=== PATIENT | male | born 1940 | race Caucasian/White ===

== ENCOUNTER 2017-06-19 06:07 | Day surgery (SDC) | payer MEDICARE, OTHER ==
[~2017-06-19] VITALS: Wt 99.8 kg
[~2017-06-19 06:07] MED LIST: ASPI325EC PO; ASPI81CH PO; ATEN25 PO; Clindamycin HC150 MG PO; Flecainide Acet50 MG PO; METO25 PO; METO25ER PO; METO50 PO; METO50ER PO; OXYACE5T PO; ROSU10TA PO; ROSU5; Tambocor100 MG; Tambocor100 MG PO
[2017-06-20 05:40] LABS: BASOPHILS ABSOLUTE AUTO 0.03 K/mm3 (0.00-0.23); BASOPHILS PERCENT AUTO 0 % (0-2); EOSINOPHILS ABSOLUTE AUTO 0.12 K/mm3 (0.00-0.68); EOSINOPHILS PERCENT AUTO 2 % (0-6); Hematocrit 34.1 % (37.0-53.0); Hemoglobin 11.5 g/dL (13.5-17.5); IMMATURE GRAN ABSOLUTE AUTO 0.02 K/mm3 (0.00-0.10); IMMATURE GRAN PERCENT AUTO 0 % (0-1); LYMPHOCYTES PERCENT AUTO 10 % (21-46); MONOCYTES PERCENT AUTO 10 % (4-13); Mean Corpuscular HGB Conc 33.7 g/dL (31.5-36.5); Mean Corpuscular Volume 95 fL (80-100); Mean Platelet Volume 9.4 fL (9.1-12.4); NEUTROPHILS ABSOLUTE AUTO 5.35 K/mm3 (1.96-9.15); NEUTROPHILS PERCENT AUTO 77 % (41-73); Platelet Count 149 K/mm3 (150-400); RDW Coefficient Variation 11.8 % (11.7-14.2); Red Blood Cell Count 3.59 M/mm3 (4.30-5.90); White Blood Cell Count 6.92 K/mm3 (4.00-11.30)
[2017-06-20 05:56] LABS: Anion Gap 6 mmol/L (6-16); Blood Urea Nitrogen 25 mg/dL (8-24); Bun/Creatinine Ratio 24.3 (12.0-20.0); CO2, Blood 26 mmol/L (21-32); Calcium, Blood 7.9 mg/dL (8.5-10.1); Chloride, Blood 108 mmol/L (98-108); Creatinine, Blood 1.03 mg/dL (0.60-1.20); Glomerular Filtration Rate >60 (60-); Glucose, Blood 143 mg/dL (70-99); Sodium, Blood 140 mmol/L (136-145)
[2017-06-20] MEDS ORDERED: HYDR1TAB94 PO (11:02)
== END 2017-06-20 14:14 | disposition home or self-care (01) ==
LOC: ORSCMMR 06:07 → SURS 06:09 → ORSCMMR 06:09 → ORD 07:30 → ORSCMMR 07:30 → SURS 11:15 → ORSCMMR 06-20 14:14
PROVIDERS: Orthopaedic Surgery
PROC: 0SRD0JA Replacement of Left Knee Joint with Synthetic Substitute, Uncemented, Open Approach (ICD-10-PCS; principal; 2017-06-19 07:30)
DX: M17.12 Unilateral primary osteoarthritis, left knee (principal); I10 Essential (primary) hypertension; Z79.899 Other long term (current) drug therapy; I48.0 Paroxysmal atrial fibrillation; Z79.82 Long term (current) use of aspirin
CPT/HCPCS: 36415; 73560-LT; 80048; 82947; 85025; 86850; 86900; 86901; 88300; 97110; 97116; 97161; 97530; C1776; G8978; G8979; J0171; J0690; J0735; J1885; J2250; J2795; J3010; J7120

== ENCOUNTER 2017-10-09 10:44 | Day surgery (SDC) | payer MEDICARE, OTHER ==
[~2017-10-09] VITALS: Ht 177.8 cm; Wt 99.3 kg
[~2017-10-09 10:44] MED LIST changes: +HYDR1TAB94 PO
== END 2017-10-09 11:55 | disposition home or self-care (01) ==
LOC: ORSCSDS 10:44
PROVIDERS: Anesthesiology
PROC: 3E0R33Z Introduction of Anti-inflammatory into Spinal Canal, Percutaneous Approach (ICD-10-PCS; principal; 2017-10-09 11:45)
DX: M51.16 Intervertebral disc disorders with radiculopathy, lumbar region (principal); I10 Essential (primary) hypertension; I48.0 Paroxysmal atrial fibrillation; E78.00 Pure hypercholesterolemia, unspecified; Z79.82 Long term (current) use of aspirin; Z79.899 Other long term (current) drug therapy
CPT/HCPCS: J1040

== ENCOUNTER 2017-11-16 09:24 | Day surgery (SDC) | payer MEDICARE, OTHER ==
[~2017-11-16] VITALS: Ht 177.8 cm; Wt 101.4 kg
== END 2017-11-16 10:26 | disposition home or self-care (01) ==
LOC: ORSCSDS 09:24
PROVIDERS: Anesthesiology
PROC: 3E0R33Z Introduction of Anti-inflammatory into Spinal Canal, Percutaneous Approach (ICD-10-PCS; principal; 2017-11-16 10:15)
DX: M51.16 Intervertebral disc disorders with radiculopathy, lumbar region (principal); I10 Essential (primary) hypertension; E11.9 Type 2 diabetes mellitus without complications; I48.0 Paroxysmal atrial fibrillation; E78.00 Pure hypercholesterolemia, unspecified; Z79.82 Long term (current) use of aspirin; Z79.899 Other long term (current) drug therapy
CPT/HCPCS: J1040

== ENCOUNTER 2018-11-20 09:23 | Day surgery (SDC) | payer MEDICARE, OTHER ==
[~2018-11-20] VITALS: Ht 177.8 cm; Wt 99.8 kg
[~2018-11-20 09:23] MED LIST changes: +Aspirin EC81 MG PO; +GABA600 PO; +METFORMIN HCL500 MG PO; +MULTI VITAMIN1 EACH PO; +ZOLP5 PO
[2018-11-20] MEDS ORDERED: Prilosec Otc20 MG PO (10:25)
== END 2018-11-20 11:50 | disposition home or self-care (01) ==
LOC: ORSCSDS 09:23
PROVIDERS: Internal Medicine Gastroenterology
PROC: 0DBH8ZX Excision of Cecum, Via Natural or Artificial Opening Endoscopic, Diagnostic (ICD-10-PCS; principal; 2018-11-20 11:00)
PROC: 0DBK8ZX Excision of Ascending Colon, Via Natural or Artificial Opening Endoscopic, Diagnostic (ICD-10-PCS; principal; 2018-11-20 11:00)
DX: R19.4 Change in bowel habit (principal); D12.0 Benign neoplasm of cecum; D12.2 Benign neoplasm of ascending colon; K57.30 Diverticulosis of large intestine without perforation or abscess without bleeding; Z80.0 Family history of malignant neoplasm of digestive organs; E66.9 Obesity, unspecified; E11.9 Type 2 diabetes mellitus without complications; I48.91 Unspecified atrial fibrillation; Z68.31 Body mass index [BMI] 31.0-31.9, adult; Z79.82 Long term (current) use of aspirin; Z79.899 Other long term (current) drug therapy
CPT/HCPCS: 82947; 88305; J2250; J2704

== ENCOUNTER 2019-02-13 12:53 | Day surgery (SDC) | payer MEDICARE, OTHER ==
[~2019-02-13] VITALS: Ht 177.8 cm; Wt 97.6 kg
[~2019-02-13 12:53] MED LIST changes: +Prilosec Otc20 MG PO
--- NOTE | 2019-02-13 13:30 | NUR ---
02/13/19 [id number] Neeru Gamboa CALL LIGHT WITHIN REACH
== END 2019-02-13 14:26 | disposition home or self-care (01) ==
LOC: ORSCSDS 12:53
PROVIDERS: Anesthesiology
PROC: 3E0R33Z Introduction of Anti-inflammatory into Spinal Canal, Percutaneous Approach (ICD-10-PCS; principal; 2019-02-13 14:00)
DX: M51.16 Intervertebral disc disorders with radiculopathy, lumbar region (principal); I10 Essential (primary) hypertension; E78.00 Pure hypercholesterolemia, unspecified; I48.0 Paroxysmal atrial fibrillation; E11.9 Type 2 diabetes mellitus without complications; E66.9 Obesity, unspecified; Z68.31 Body mass index [BMI] 31.0-31.9, adult; Z79.82 Long term (current) use of aspirin; Z79.84 Long term (current) use of oral hypoglycemic drugs; Z79.899 Other long term (current) drug therapy
CPT/HCPCS: J1040

== ENCOUNTER 2022-05-21 01:02 | Inpatient (IN) | payer MEDICARE, OTHER ==
[~2022-05-21] VITALS: Ht 177.8 cm; Wt 99.1 kg
[2022-05-21 01:39] LABS: BASOPHILS ABSOLUTE AUTO 0.06 K/mm3 (0.00-0.23); BASOPHILS PERCENT AUTO 1 % (0-2); EOSINOPHILS ABSOLUTE AUTO 0.37 K/mm3 (0.00-0.68); EOSINOPHILS PERCENT AUTO 7 % (0-6); Hematocrit 38.4 % (37.0-53.0); Hemoglobin 12.3 g/dL (13.5-17.5); IMMATURE GRAN ABSOLUTE AUTO 0.04 K/mm3 (0.00-0.10); IMMATURE GRAN PERCENT AUTO 1 % (0-1); LYMPHOCYTES ABSOLUTE AUTO 0.99 K/mm3 (0.84-5.20); LYMPHOCYTES PERCENT AUTO 18 % (21-46); MONOCYTES ABSOLUTE AUTO 0.45 K/mm3 (0.16-1.47); MONOCYTES PERCENT AUTO 8 % (4-13); Mean Corpuscular Volume 94 fL (80-100); Mean Platelet Volume 9.6 fL (9.1-12.4); NEUTROPHILS ABSOLUTE AUTO 3.69 K/mm3 (1.96-9.15); NEUTROPHILS PERCENT AUTO 66 % (41-73); Platelet Count 188 K/mm3 (150-400); RDW Coefficient Variation 12.7 % (11.7-14.2); RDW Standard Deviation 43.5 fL (35.1-46.3)
[2022-05-21 02:46] LABS: Albumin, Blood 3.6 g/dL (3.4-5.0); Albumin/Globulin Ratio 1.1 (0.8-1.8); Bilirubin, Total 0.3 mg/dL (0.1-1.0); Bun/Creatinine Ratio 24.3 (12.0-20.0); Calcium, Blood 8.4 mg/dL (8.5-10.1); Creatinine, Blood 1.15 mg/dL (0.60-1.20); Globulin, Blood 3.3 g/dL (2.2-4.0); Potassium, Blood 4.4 mmol/L (3.5-5.5); Total Protein, Blood 6.9 g/dL (6.4-8.2)
[2022-05-21 03:32] LABS: International Normalized Ratio 1.16; Prothrombin Time Results 12.1 Sec (9.7-11.5)
[2022-05-21 03:51] LABS: Anti-Xa UFH, PHA Monitoring 1.02 IU/mL
[2022-05-21] MEDS ORDERED: ELIQUIS5 M3 PO (04:30)
[2022-05-21 06:09] LABS: CHOL/HDL RATIO 2.9; Cholesterol 167 mg/dL (50-200); HDL Cholesterol 57 mg/dL (>39); LDL/HDL RATIO 1.4; Low Density Lipoprotein Chol 82 mg/dL (0-110); Triglycerides 140 mg/dL (30-160); Very Low Density Lipoprot Chol 28 mg/dL (6-32)
--- NOTE | 2022-05-21 06:45 | NUR ---
CALL TO PROVIDER DR LEIJA CALLED AND NOTIFIED OF TROPONIN LEVEL AT THIS TIME. NOTIFIED THAT CARDIOLOGY CONSULT HAS BEEN PLACED AND ANSWERING SERVICE NOTIFIED, PT IS CURRENLTY ON HEPARIN GTT. NOTIFIED OF PT CONTINUING TO DENY CP. PT IS NPO IN ANTICIPATION FOR POSSIBLE PROCEDURE FOLLOWING CARDIOLOGY CONSULT. NO FURTHER ORDERS AT THIS TIME.
--- NOTE | 2022-05-21 17:30 | NUR ---
ASSUMED CARE OF PT AT 0700 THIS AM. NO ACUTE EVENTS. ECHO COMPLETED AND CARDIOLOGY CONSULTED, PLAN FOR ANGIO IN AM. NPO AFTER MIDNIGHT. DR DAS NOTIFIED OF CRITICALLY HIGH TROPONIN TODAY. PT HAS DENIED CHEST PAIN OR PRESSURE ALL THROUGHOUT THE SHIFT. SEE DOCUMENTED VS. HEPARIN GTT CONTINUES TO INFUSE. PT IS ABLE TO USE CALL LIGHT FOR NEEDS, CALL LIGHT IN REACH AND FAMILY AT BEDSIDE AT THIS TIME. WILL CONTINUE TO MONITOR AND GIVE REPORT TO NOC SHIFT RN.
[2022-05-21] MEDS ORDERED: DONE5 PO (20:11)
[2022-05-22 03:49] LABS: BASOPHILS ABSOLUTE AUTO 0.04 K/mm3 (0.00-0.23); BASOPHILS PERCENT AUTO 1 % (0-2); EOSINOPHILS ABSOLUTE AUTO 0.32 K/mm3 (0.00-0.68); EOSINOPHILS PERCENT AUTO 6 % (0-6); Hematocrit 37.7 % (37.0-53.0); Hemoglobin 12.2 g/dL (13.5-17.5); IMMATURE GRAN ABSOLUTE AUTO 0.02 K/mm3 (0.00-0.10); IMMATURE GRAN PERCENT AUTO 0 % (0-1); LYMPHOCYTES ABSOLUTE AUTO 1.18 K/mm3 (0.84-5.20); LYMPHOCYTES PERCENT AUTO 22 % (21-46); MONOCYTES ABSOLUTE AUTO 0.45 K/mm3 (0.16-1.47); MONOCYTES PERCENT AUTO 8 % (4-13); Mean Corpuscular HGB 29.8 pg (26.0-34.0); Mean Corpuscular HGB Conc 32.4 g/dL (31.5-36.5); Mean Corpuscular Volume 92 fL (80-100); NEUTROPHILS ABSOLUTE AUTO 3.37 K/mm3 (1.96-9.15); NEUTROPHILS PERCENT AUTO 63 % (41-73); Platelet Count 172 K/mm3 (150-400); RDW Coefficient Variation 12.8 % (11.7-14.2); Red Blood Cell Count 4.09 M/mm3 (4.30-5.90); White Blood Cell Count 5.38 K/mm3 (4.00-11.30)
--- NOTE | 2022-05-22 04:20 | NUR ---
SHIFT SUMMARY AOX3-MILDLY FORGETFUL @BEGINNING OF SHIFT HOWEVER PLEASENT & COOPERATIVE. VSS. DENIES ANY CP, PRESSURE, N/V, DYSPNEA OR DIZZINESS. IND c AMBULATION, STEADY GAIT. HEP GTT RUNNING 15U/KG/HR. HAS BEEN NPO SINCE 2400 FOR PLAN TO GO TO [employer] DEVELOPMENT ENGINEER IN AM 1/16. REPORTED ANXIETY @[facility] & DR WIN ORDERED 0.25MG XANAX PO GAVE MED AROUND 2200. AROUND 2400 PTS MENTATION HAD CHANGED, HE WAS IRRITATED, AGITATED, REFUSING ALL CARE, VS, LABS. UNABLE TO ANSWER ORIENTATION QUESTIONS & FIRMLY ASKING STAFF TO LEAVE RM. CALLED DAUGHTER TO HELP REORIENT & REDIRECT, PT DIDNT BELIEVE DAUGHTER OVER THE PHONE. STARTED BECOMING MORE AGITATED & IRRITATED. WENT TO DISCUSS INCREASED CONFUSION c CHARGE N CRYSTAL D & WITHIN MIN PT HAD RIPPED IV TUBBING APART & WAS BLEEDING ALLOVER FLOOR & WAS UNSTEADY ON FEET. PLACED SOFT WRIST RESTRAINTS & 5MG IM ZYPREXA PER DR CHRISTOPHER ORDER. DAUGHTER MARGO INFORMED OF RESTRAINTS. PT HASNT SLEPT MORE THEN 40MIN T/O ENTIRE NIGHT. HAS BECOME ENCREASINGLY CONFUSED & AGITATED. THREATENED TO HIT STAFF MEMBERS INCLUDING NURSE. THINKS HE IS IN A "NURSING HOME, BASEMENT" TRYS TO GRAB, HIT, PINCH WHEN TRYING TO REASURE OR PERFORM CARE. PT BROKE OUT OF SOFT RESTRAINTS ROUGHLY 3-4x & WAS BECOMING COMBATIVE. MEDICATED c ANOTHER 5MG IM ZYPREXA & 1MG IV ATIVAN, MEDICATION DIDNT HELP c AGITATION. INFORMED DR TERRAZAS & HE ORDERED TUFF CUFFS TO BE PLACED ROUGHLY 0400, SECURITY IN RM TO ASSIST c PLACEMENT. WILL CALL DAUGHTER & UPDATE PER HER REQUEST. CALL LIGHT IN REACH, BED ALARM ON, THIS NURSE SITTING AT PTS RM DOOR.
[2022-05-22 06:30] LABS: Bun/Creatinine Ratio 20.4 (12.0-20.0); Calcium, Blood 8.8 mg/dL (8.5-10.1); Creatinine, Blood 1.13 mg/dL (0.60-1.20); Potassium, Blood 4.2 mmol/L (3.5-5.5)
--- NOTE | 2022-05-22 07:57 | NUR ---
Assumed care of patient at approx 0700, pt alert, oriented to self; know month/year/president; states he is going to a football game. Pt pulling at restraints and removing tele this am, reorinted pt several times, pt quickly forgets and calls out for help. Pt denies pain, chest pain/pressure, sob, nausea, diziness and numb/tingling. Tele sinus 60's bp stable. Spo2 >90% on ra, ls clear, resp rate 18-20. Abd soft nontender, with normoactive bt. Slight edema noted to bilateral ankles. Pulses strong. Other vss. No other acute changes noted. Will continue to monitor. Pt remains NPO for quality assurance qa lab analyst procedure.
--- NOTE | 2022-05-22 18:02 | NUR ---
Shift Summary Pt alert, oriented to self, family and month/year; unsure of where or event. Pt aggitated at times, pulling at restraints, attempting to get out of bed, throwing a blanket. Pt had tough cuffs on, removed this afternoon, pt remains in naseem vest. Tele sinus rhythm 50-60's, bp stable. Spo2 >90% on ra, breathing even and unlabored. Plans had been for angio during shift, however moved to tomorrow due to aggiation. Other vss. no other acute changes noted. Will continue to monitor.
--- NOTE | 2022-05-23 04:45 | NUR ---
SHIFT SUMMARY PT A&O TO SELF, FAMILY, AND PLACE. PT MAKES SOME CONFUSED STATEMENTS AND IS FORGETFUL AT TIMES, DAUGHTER REMAINED AT BEDSIDE THROUGHOUT SHIFT. ELIZABETH VEST WAS UNTIED AT 2225, BED ALARM ON, PT REMAINED APPROPRIATE AND COOPERATIVE WITH STAFF. VSS, BP STABLE, SB-SR 50-60's, DENIES CP/PRESSURE. SpO2> 92% RA, DENIES SOB. PT CONTINENT OF URINE AND BOWEL, SBA TO BATHROOM. HEPARIN gtt @ 15. PT NPO AT 0000. NO OTHER EVENTS, WILL REPORT TO ONCOMING RN.
[2022-05-23 05:36] LABS: Hematocrit 34.9 % (37.0-53.0); Hemoglobin 11.2 g/dL (13.5-17.5); Mean Corpuscular HGB 29.9 pg (26.0-34.0); Mean Corpuscular HGB Conc 32.1 g/dL (31.5-36.5); Mean Corpuscular Volume 93 fL (80-100); Mean Platelet Volume 9.5 fL (9.1-12.4); Platelet Count 152 K/mm3 (150-400); RDW Coefficient Variation 12.8 % (11.7-14.2); RDW Standard Deviation 43.8 fL (35.1-46.3); Red Blood Cell Count 3.74 M/mm3 (4.30-5.90); White Blood Cell Count 4.06 K/mm3 (4.00-11.30)
--- NOTE | 2022-05-23 05:43 | NUR ---
UPDATE NOTIFIED PHYSCIAN THAT PT CONVERTED TO AFIB, ORDERS GIVEN TO ADMINISTER 0900 DOSE OF METOPROLOL NOW.
[2022-05-23 05:54] LABS: Albumin, Blood 3.1 g/dL (3.4-5.0); Anion Gap 4 mmol/L (6-16); Blood Urea Nitrogen 20 mg/dL (8-24); CO2, Blood 24 mmol/L (21-32); Calcium, Blood 8.1 mg/dL (8.5-10.1); Chloride, Blood 114 mmol/L (98-108); Creatinine, Blood 1.11 mg/dL (0.60-1.20); Glomerular Filtration Rate 68 (60-); Glucose, Blood 125 mg/dL (70-99); Phosphorus, Blood 3.2 mg/dL (2.5-4.9); Sodium, Blood 142 mmol/L (136-145)
--- NOTE | 2022-05-23 15:37 | NUR ---
Pt. is awake in bed and welcomes my visit. Spouse and daughter are present. Pt. has just returned form surgery, but is pleasant, clear minded and displays a sense of humor. Faciltate a life review and prayed for Pt. Pt. and spouse verbalized gratitude fo rthe spiritual care visit, and welcomed my return.
--- NOTE | 2022-05-23 16:55 | NUR ---
PHYSICIAN COMMUNICATION NOTIFIED DR DAS THAT THE PATIENT STARTED FEELING SHORT OF BREATH AFTER EATING A SANDWICH AND THAT THERE WAS SOME FAINT FINE CRACKLES NOTED IN PATIENT R LOWER LUNG. ALSO RELAYED THAT THERE WAS T WAVE INVERSIONS ON THE PATIENT'S EKG THAT WERE NOT PRESENT ON PREVIOUS EKG.
--- NOTE | 2022-05-23 18:42 | NUR ---
SHIFT SUMMARY PATIENT ALERT AND ORIENTED X3. DR DAS CAME TO PATIENT'S ROOM AND AJDUSTED THE TR BAND TO ACCOUNT FOR BLEEDING UNDER THE SKIN AT 1735. WILL LEAVE BAND INFLATED FOR TWO HOURS FROM THAT TIME PER DR DAS. PATIENT'S SHORTNESS OF BREATH HAS IMPROVED. TOLERATING FOOD WELL.WILL CONTINUE TO MONITOR. CALL LIGHT WITHIN REACH.
--- NOTE | 2022-05-23 21:53 | NUR ---
ASSUMPTION OF CARE ASSUMED CARE OF PT AT 1900. PT A&Ox4, COMMUNICATES NEEDS APPROPRIATELY. FAMILY AT BEDSIDE. VSS, SpO2> 92% RA, REPORTS HAVING VERY MILD SOB, PROVIDED EDUCATION ON THE PT's NEW MEDICATION, BRILINTA, AND HOW THAT CAN BE A SIDE EFFECT. BP STABLE, SINUS 60's, PT DENIES CP/PRESSURE. SBA TO BATHROOM, CONTINENT OF URINE AND BOWEL. TR BAND AND ARM BOARD IN PLACE. PT HAS SWELLING AND HEMATOMA, CHIMNEY BUILDER AWARE. ASSESSED SITE WITH DAYSHIFT RN WHO STATED THAT SWELLING AND HEMATOMA HAS NOT GOTTEN WORSE SINCE CHIMNEY BUILDER CAME TO BEDSIDE AND ADJUSTED TR BAND. PT DENIES PAIN, HAS FULL SENSATION AND MOVEMENT OF FINGERS, RADIAL PULSE PRESENT, GOOD SpO2 READING OF INDEX FINGER. WILL CONTINUE TO MONITOR SITE AND BEGIN DEFLATING TR BAND ACCORDING TO CHIMNEY BUILDER's INSTRUCTIONS.
--- NOTE | 2022-05-24 00:17 | NUR ---
TR BAND RECOVERY TR BAND AND ARM BOARD IN PLACE. PT HAS SWELLING AND HEMATOMA, CREATIVE SERVICES MANAGER AWARE. ASSESSED SITE WITH DAYSHIFT RN WHO STATED THAT SWELLING AND HEMATOMA HAS NOT GOTTEN WORSE SINCE CREATIVE SERVICES MANAGER CAME TO BEDSIDE AND ADJUSTED TR BAND. PT DENIES PAIN, HAS FULL SENSATION AND MOVEMENT OF FINGERS, RADIAL PULSE PRESENT, GOOD SpO2 READING OF INDEX FINGER. WILL CONTINUE TO MONITOR SITE AND BEGIN DEFLATING TR BAND ACCORDING TO CREATIVE SERVICES MANAGER's INSTRUCTIONS. BEGAN DEFLATING TR BAND AT 2014. TR BAND WAS EMPTY AT 2300. REMOVED TR BAND AT 0000, CLEANED SITE WITH CHLORHEXIDINE, APPLIED TEGADERM, AND PLACED ARM BOARD. SWELLING IS UNCHANGED, ARM ELEVATED. HEMATOMA IS UNCHANGED, SITE BEGINING TO TURN PURPLE.
[2022-05-24 03:43] LABS: BASOPHILS ABSOLUTE AUTO 0.03 K/mm3 (0.00-0.23); BASOPHILS PERCENT AUTO 0 % (0-2); EOSINOPHILS PERCENT AUTO 6 % (0-6); IMMATURE GRAN ABSOLUTE AUTO 0.01 K/mm3 (0.00-0.10); IMMATURE GRAN PERCENT AUTO 0 % (0-1); LYMPHOCYTES ABSOLUTE AUTO 1.02 K/mm3 (0.84-5.20); LYMPHOCYTES PERCENT AUTO 15 % (21-46); MONOCYTES PERCENT AUTO 7 % (4-13); Mean Corpuscular HGB 30.2 pg (26.0-34.0); Mean Corpuscular HGB Conc 33.3 g/dL (31.5-36.5); Mean Corpuscular Volume 91 fL (80-100); Mean Platelet Volume 9.4 fL (9.1-12.4); NEUTROPHILS ABSOLUTE AUTO 4.93 K/mm3 (1.96-9.15); NEUTROPHILS PERCENT AUTO 72 % (41-73); Platelet Count 190 K/mm3 (150-400); RDW Coefficient Variation 12.8 % (11.7-14.2); RDW Standard Deviation 42.4 fL (35.1-46.3); Red Blood Cell Count 3.98 M/mm3 (4.30-5.90); White Blood Cell Count 6.89 K/mm3 (4.00-11.30)
[2022-05-24 04:00] LABS: Bun/Creatinine Ratio 17.7 (12.0-20.0); Calcium, Blood 8.8 mg/dL (8.5-10.1); Creatinine, Blood 1.24 mg/dL (0.60-1.20)
--- NOTE | 2022-05-24 05:22 | NUR ---
SHIFT SUMMARY SEE PREVIOUS NOTES. NO ACUTE CHANGES. PT A&Ox4, COMMUNICATES NEEDS APPROPRIATELY. VSS, BP STABLE, SB-SR 50-70's, SpO2> 92% RA. PT REPORTING MILD SOB AND CHEST DISCOMFORT THIS AM, PT SAYS THAT IT IS NOT THE SAME CP THAT HE WAS HAVING BEFORE COMING TO THE ER. PT STATED THAT HE THINKS IT THE BRILINTA THAT IS CAUSING THE SOB/CHEST DISCOMFORT FEELING. SAT PT UP MORE IN BED AND PT STATED THAT THE FEELING GOT BETTER. RIGHT RADIAL SITE REMAINS UNCHANGED FROM PREVIOUS NOTE. PT CONTNIENT OR URINE AND BOWEL, SBA TO BATHROOM. NO OTHER EVENTS, WILL REPORT TO ONCOMING RN.
[2022-05-24] MEDS ORDERED: Amiodarone HCl200 MG PO (10:32)
[2022-05-24] MEDS ORDERED: JARDIANCE25 MG PO (10:33)
[2022-05-24] MEDS ORDERED: EZET10 PO (10:33)
[2022-05-24] MEDS ORDERED: TICA90TA PO (10:34)
[2022-05-24] MEDS ORDERED: Lisinopril2.5 MG PO (10:34)
[2022-05-24] MEDS ORDERED: NITR.4SL SL (10:37)
--- NOTE | 2022-05-24 11:28 | NUR ---
Pt. is sitting up in a chair and welcomes my visit. Spouse is present. Pt. displays evidence of being ready to discharge. Re-establish rapport and facilitate life review. Pt. displays evidence of having good support at home. Nurses came to prepare for his D/C. Pt. verbalized gratitude for the spiritual care visit, and requested this yard laborer's phone number for future follow up.
--- NOTE | 2022-05-24 12:10 | NUR ---
DISCHARGE NOTE PATIENT AND HIS PROVIDED WITH DISCHARGE INSTRUCTIONS AND DISCHARGE MEDICATION LIST. THEY WERE EDUCATED ON NEW MEDICATIONS AND MEDICATION CHANGES. ENCOURAGED TO FOLLOW ANGIOGRAM AFTER CARE OF R RADIAL SITE, INFORMATION PACKET PROVIDED, AND TO FOLLOW UP WITH PROVIDERS RECOMMENDED. IV REMOVED. PATIENT ESCORTED TO PRIVATE CAR VIA WHEEL CHAIR.
== END 2022-05-24 12:10 | disposition home or self-care (01) | DRG 246 ==
LOC: ER 01:02 → PCU 04:05
PROVIDERS: Internal Medicine; Internal Medicine Cardiovascular Disease; Student in an Organized Health Care Education/Training Program; ADMIT Family Medicine
PROC: 027034Z Dilation of Coronary Artery, One Artery with Drug-eluting Intraluminal Device, Percutaneous Approach (ICD-10-PCS; principal; 2022-05-23)
PROC: 4A023N7 Measurement of Cardiac Sampling and Pressure, Left Heart, Percutaneous Approach (ICD-10-PCS; 2022-05-23)
PROC: B211YZZ Fluoroscopy of Multiple Coronary Arteries using Other Contrast (ICD-10-PCS; 2022-05-23)
PROC: B24BZZ3 Ultrasonography of Heart with Aorta, Intravascular (ICD-10-PCS; 2022-05-23)
DX: I21.4 Non-ST elevation (NSTEMI) myocardial infarction (principal); G92.8 Other toxic encephalopathy; I48.0 Paroxysmal atrial fibrillation; I35.0 Nonrheumatic aortic (valve) stenosis; E11.9 Type 2 diabetes mellitus without complications; E78.00 Pure hypercholesterolemia, unspecified; I10 Essential (primary) hypertension; I71.40 Abdominal aortic aneurysm, without rupture, unspecified; T42.4X5A Adverse effect of benzodiazepines, initial encounter; I44.0 Atrioventricular block, first degree; F03.90 Unspecified dementia, unspecified severity, without behavioral disturbance, psychotic disturbance, mood disturbance, and anxiety; Z96.652 Presence of left artificial knee joint; Z85.46 Personal history of malignant neoplasm of prostate; Z90.79 Acquired absence of other genital organ(s); Z90.49 Acquired absence of other specified parts of digestive tract; Z98.890 Other specified postprocedural states; Z88.6 Allergy status to analgesic agent; Z88.8 Allergy status to other drugs, medicaments and biological substances; Z79.01 Long term (current) use of anticoagulants; Z79.84 Long term (current) use of oral hypoglycemic drugs; Z79.82 Long term (current) use of aspirin; Z79.899 Other long term (current) drug therapy
CPT/HCPCS: 36415; 71046; 76937; 80048; 80053; 80061; 80069; 82947; 83036; 83880; 84484; 85025; 85027; 85347; 85520; 85610; 85730; 92978; 93005; 93010; 93306; 93458; 94762; 99152; 99153; 99285-25; A9270; C1725; C1753; C1769; C1874; C1887; C1894; C9600; J1630; J1644; J2060; J3010; J7030; J7040; J7050; Q9967

== ENCOUNTER 2022-05-29 06:50 | Observation (INO) | payer MEDICARE, OTHER ==
[~2022-05-29] VITALS: Ht 177.8 cm; Wt 100.5 kg
[~2022-05-29 06:50] MED LIST changes: +Amiodarone HCl200 MG PO; +DONE5 PO; +ELIQUIS5 M3 PO; +EZET10 PO; +JARDIANCE25 MG PO; +Lisinopril2.5 MG PO; +NITR.4SL SL; +TICA90TA PO
[2022-05-29 07:10] LABS: BASOPHILS ABSOLUTE AUTO 0.04 K/mm3 (0.00-0.23); BASOPHILS PERCENT AUTO 1 % (0-2); EOSINOPHILS ABSOLUTE AUTO 0.26 K/mm3 (0.00-0.68); EOSINOPHILS PERCENT AUTO 5 % (0-6); Hematocrit 34.9 % (37.0-53.0); Hemoglobin 11.6 g/dL (13.5-17.5); IMMATURE GRAN ABSOLUTE AUTO 0.01 K/mm3 (0.00-0.10); IMMATURE GRAN PERCENT AUTO 0 % (0-1); LYMPHOCYTES ABSOLUTE AUTO 0.91 K/mm3 (0.84-5.20); LYMPHOCYTES PERCENT AUTO 17 % (21-46); MONOCYTES ABSOLUTE AUTO 0.41 K/mm3 (0.16-1.47); MONOCYTES PERCENT AUTO 8 % (4-13); Mean Corpuscular HGB Conc 33.2 g/dL (31.5-36.5); Mean Corpuscular Volume 90 fL (80-100); Mean Platelet Volume 9.9 fL (9.1-12.4); NEUTROPHILS ABSOLUTE AUTO 3.77 K/mm3 (1.96-9.15); NEUTROPHILS PERCENT AUTO 70 % (41-73); Platelet Count 205 K/mm3 (150-400); RDW Standard Deviation 42.6 fL (35.1-46.3); Red Blood Cell Count 3.87 M/mm3 (4.30-5.90)
[2022-05-29 07:32] LABS: Albumin, Blood 3.2 g/dL (3.4-5.0); Albumin/Globulin Ratio 0.9 (0.8-1.8); Bilirubin, Total 0.4 mg/dL (0.1-1.0); Bun/Creatinine Ratio 14.7 (12.0-20.0); Calcium, Blood 8.8 mg/dL (8.5-10.1); Creatinine, Blood 1.36 mg/dL (0.60-1.20); Globulin, Blood 3.7 g/dL (2.2-4.0); Potassium, Blood 3.6 mmol/L (3.5-5.5); Total Protein, Blood 6.9 g/dL (6.4-8.2)
[2022-05-29 08:09] LABS: International Normalized Ratio 1.12; Prothrombin Time Results 11.7 Sec (9.7-11.5)
[2022-05-29 15:02] LABS: Base Excess Venous -6.4 mmol/L; Bicarbonate Venous 19.2 mmol/L (24.0-30.0); pH Blood Venous 7.34 (7.34-7.37)
--- NOTE | 2022-05-29 15:14 | NUR ---
ADMIT NOTE: PATIENT ADMIT TO PCU AT 1345. ABLE TO STAND AND TRANSFER WITH NURSE ASSIST. PERRLA, WEARING GLASSES. STATES TO HAVE SOME N/T IN BILATERAL HANDS, PER PATIENT THIS IS HIS NORMAL. ON ROOM AIR SATING ABOVE 95%. LUNGS SOUNDING CLEAR. DENIES SOB/COUGH. TELE SHOWING SINUS RHYTHM WITH 1ST DEGREE HEART BLOCK. HR 60'S. BP STABLE. PPP. RECENT ANGIO TO RIGHT RADIAL. LARGE RIGHT FA BRUISE. DR. MG CALLED TO UPDATE ON RECENT CONVERSION TO SR FROM ED TO PCU. AMIO GTT DC'D AND PO AMIO STARTED AND ORDERED TID, SEE EMAR. DENIES ABDOMINAL PAIN/NAUSEA. EATING WNL. PATIENT REFUSES INSULIN. AC BLOOD SUGAR CHECKS ORDERED. LR INFUSING PER EMAR X1 BAG. USING URINAL AT BEDSIDE. ADMIT COMPLETED. AND DAUGHTER AT BEDSIDE AND UPDATED ON PLAN OF CARE. CALL LIGHT IN REACH.
[2022-05-29 15:37] LABS: Bun/Creatinine Ratio 15.4 (12.0-20.0); Calcium, Blood 8.3 mg/dL (8.5-10.1); Creatinine, Blood 1.23 mg/dL (0.60-1.20); Potassium, Blood 3.9 mmol/L (3.5-5.5)
--- NOTE | 2022-05-29 17:41 | NUR ---
SHIFT SUMMARY: NO ACUTE CHANGES, SEE PREVIOUS NOTE. PATIENT REMAINS ALERT AND ORIENTED X4. ON ROOM AIR. LR INFUSING AT 75 ML/HR X1 BAG. TELE CONTINUES TO SHOW SR WITH 1ST DEGREE AV BLOCK. DENIES CHEST PAIN/PRESSURE. EATING WNL. REFUSING INSULIN. AC BLOOD SUGAR CHECKS. REMAINS AT BEDSIDE. EATING DINNER AT THIS TIME. UP TO CHAIR FOR DINNER. ONE PERSON ASSIST TO BATHROOM. WILL CONTINUE TO MONITOR AND REPORT OFF TO ONCOMING RN.
[2022-05-29 22:41] LABS: Bun/Creatinine Ratio 15.3 (12.0-20.0); Calcium, Blood 8.3 mg/dL (8.5-10.1); Creatinine, Blood 1.31 mg/dL (0.60-1.20); Potassium, Blood 3.8 mmol/L (3.5-5.5)
[2022-05-30 04:53] LABS: Bun/Creatinine Ratio 14.4 (12.0-20.0); Calcium, Blood 8.2 mg/dL (8.5-10.1); Creatinine, Blood 1.25 mg/dL (0.60-1.20); Magnesium, Blood 2.1 mg/dL (1.6-2.4); Potassium, Blood 3.5 mmol/L (3.5-5.5)
--- NOTE | 2022-05-30 05:42 | NUR ---
SHIFT SUMMARY PT A/O X4, PLEASANT AND COOPERATIVE. PT IS ABLE TO AMBULATE TO RESTROOM WITH STANDBY ASSIST. PT USED THE CALL LIGHT APPROPRIATELY. LR INFUSION COMPLETE. IV SALINE LOCKED. PT O2 SAT >92% ON RA. LUNGS CLEAR T/O. PT DENIES ANY SOB. PT IN AFIB IN THE 70'S-80'S UPON START OF THIS RN SHIFT. DR MG NOTIFIED. NO NEW ORDERS, CONTINUE WITH PO AMIODARONE AND NOTIFY IF RATE INCREASES. PT STATED HE IS FELT POORLY WHILE IN AFIB AND NOTICED IMMEDIATELY, BUT CONTINUES TO DENY ANY SOB, CP, OR LIGHTHEADEDNESS. PT CONVERTED BACK TO SINUS RHYTHM @ APPROX 2030. TELE NOTIFIED THIS RN THAT PT'S QTC WENT FROM 0.43 TO 0.56. RESIDENT HOSPITALIST, DR RAMIREZ, NOTIFIED. EKG OBTAINED AND REPEAT BMP DRAWN. DR RAMIREZ SHOWN EKG, PROLONGED QTC NOT NOTED ON EKG. NO NEW ORDERS GIVEN. APPROX 0200, PT BACK INTO AFIB ON TELE. RATE IN 60-80'S. PT C/O ARM PAIN SHORTLY AFTER, BUT EASILY RELIEVED WITH PO TYLENOL. PT CONTINUES TO DENY ANY OTHER SYMPTOMS. HE APPEARS TO BE RESTING COMFORTABLY AT THIS TIME. WILL CONTINUE TO CARE FOR PT AND REPORT TO [facility] DAY SHIFT NURSE.
--- NOTE | 2022-05-30 07:38 | NUR ---
Bedside report received from Kylah TREVIÑO. Pt is awake, alert and oriented, with some noted lapses in short term memory which he accomodates for by asking frequent questions. He states he is eager to go home today. Atrial fibrillation noted by telemetry monitoring, rate 83-100 bpm while at rest. Pt denies any symptoms and blood pressure is stable.
--- NOTE | 2022-05-30 09:50 | NUR ---
Ambulatory to the bathroom, noted heart rate 115 bpm during activity. Pt states no symptoms. At this time, noted occasional runs of sinus rhythm
--- NOTE | 2022-05-30 11:16 | NUR ---
"Spiritual Care | Pt. request Pt. is somnilent but responds when I enter the room. Pt. is pleasant, but displays evidence of ocassional confusion. Establish rapport. Pt. verbalizes expectation that he will be discharged today. Pt. displayed evidence of being encouraged and verbalized gratitude for the spiritual care visit."
--- NOTE | 2022-05-30 14:46 | NUR ---
Call to Dr. Vo regarding pt's conversions back and forth to atrial fibrillation. Pt does feel when it happens, but his blood pressure is stable and he does not have dyspnea. New orders received. His is at the bedside, expressing concerns that the amiodarone 400 mg bid dose may not be aggressive enough due to the face that the pt was on this dose at home and had the afib with [facility].
--- NOTE | 2022-05-30 17:22 | NUR ---
Pt sitting up in chair, no apparent discomfort nor distress, atrial fibrillation noted by telemetry, rate 91 bpm
[2022-05-31 04:47] LABS: Bun/Creatinine Ratio 17.4 (12.0-20.0); Calcium, Blood 8.6 mg/dL (8.5-10.1); Creatinine, Blood 1.32 mg/dL (0.60-1.20); Magnesium, Blood 2.2 mg/dL (1.6-2.4); Potassium, Blood 3.8 mmol/L (3.5-5.5)
--- NOTE | 2022-05-31 06:33 | NUR ---
SHIFT SUMMARY A/OX3, FORGETFUL. PLEASANT AND COOPERATIVE WITH CARE. IND TO BATHROOM. TELE FLIPS BETWEEN SR/AFIB. BP STABLE; DENIES CHEST PAIN/PRESSURE. SPO2 >92% ON RA. VSS, NO ACUTE CHANGES AT THIS TIME. BED IN LOWEST POSITION WITH CALL LIGHT IN REACH. WILL CONTINUE TO MONITOR AND REPORT TO ONCOMING RN.
--- NOTE | 2022-05-31 08:26 | NUR ---
Dr. Cline here, rounding on the patient. Call to Dr. Vo to clarify discharge dose of amiodarone.
--- NOTE | 2022-05-31 10:13 | NUR ---
Pt. is awake and welcomes my visit. Rapport is quickly re-established and Pt. is pleasant. Pt. verbalized an anticipated discharge today. Normalized the the Pt. experience. Prayed with Pt. Pt. verblaized gratitude for the spiritual care visit.
== END 2022-05-31 12:12 | disposition home or self-care (01) ==
LOC: ER 06:50 → PCU 06:51 → DELPENDDIS 05-30 10:48 → ENPENDDIS 05-30 10:48 → PCU 05-31 12:12
PROVIDERS: Emergency Medicine; Family Medicine; Internal Medicine; Nurse Practitioner Acute Care; ADMIT Internal Medicine
DX: I48.91 Unspecified atrial fibrillation (principal); E78.5 Hyperlipidemia, unspecified; E11.22 Type 2 diabetes mellitus with diabetic chronic kidney disease; I12.9 Hypertensive chronic kidney disease with stage 1 through stage 4 chronic kidney disease, or unspecified chronic kidney disease; N18.30 Chronic kidney disease, stage 3 unspecified; F03.90 Unspecified dementia, unspecified severity, without behavioral disturbance, psychotic disturbance, mood disturbance, and anxiety; R77.8 Other specified abnormalities of plasma proteins; I25.10 Atherosclerotic heart disease of native coronary artery without angina pectoris; E11.40 Type 2 diabetes mellitus with diabetic neuropathy, unspecified; K21.9 Gastro-esophageal reflux disease without esophagitis; R41.89 Other symptoms and signs involving cognitive functions and awareness; Z98.61 Coronary angioplasty status
CPT/HCPCS: 36415; 71045; 80048; 80053; 82803; 82947; 83735; 84484; 85025; 85610; 85730; 92960; 93005; 93010; 96365-59; 99291-25; A9270; G0378; J0282; J7040; J7060; J7120

== ENCOUNTER 2022-08-25 08:24 | Emergency (ER) | payer MEDICARE, OTHER ==
[~2022-08-25] VITALS: Ht 177.8 cm; Wt 96.6 kg
[2022-08-25 09:03] LABS: BASOPHILS ABSOLUTE AUTO 0.04 K/mm3 (0.00-0.23); BASOPHILS PERCENT AUTO 1 % (0-2); EOSINOPHILS ABSOLUTE AUTO 0.19 K/mm3 (0.00-0.68); EOSINOPHILS PERCENT AUTO 4 % (0-6); Hemoglobin 11.8 g/dL (13.5-17.5); IMMATURE GRAN ABSOLUTE AUTO 0.01 K/mm3 (0.00-0.10); IMMATURE GRAN PERCENT AUTO 0 % (0-1); LYMPHOCYTES PERCENT AUTO 21 % (21-46); MONOCYTES ABSOLUTE AUTO 0.36 K/mm3 (0.16-1.47); MONOCYTES PERCENT AUTO 8 % (4-13); Mean Corpuscular HGB 28.9 pg (26.0-34.0); Mean Corpuscular HGB Conc 32.8 g/dL (31.5-36.5); Mean Corpuscular Volume 88 fL (80-100); Mean Platelet Volume 9.4 fL (9.1-12.4); NEUTROPHILS ABSOLUTE AUTO 2.81 K/mm3 (1.96-9.15); NEUTROPHILS PERCENT AUTO 65 % (41-73); Platelet Count 214 K/mm3 (150-400); RDW Coefficient Variation 13.2 % (11.7-14.2); RDW Standard Deviation 42.6 fL (35.1-46.3); Red Blood Cell Count 4.09 M/mm3 (4.30-5.90); White Blood Cell Count 4.31 K/mm3 (4.00-11.30)
[2022-08-25] MEDS ORDERED: METO50 PO (09:09)
[2022-08-25] MEDS ORDERED: METO25 PO (09:09)
[2022-08-25] MEDS ORDERED: METFORMIN HCL500 M2 PO (09:10)
[2022-08-25 09:39] LABS: Bun/Creatinine Ratio 15.6 (12.0-20.0); Calcium, Blood 8.7 mg/dL (8.5-10.1); Creatinine, Blood 1.28 mg/dL (0.60-1.20); Magnesium, Blood 2.1 mg/dL (1.6-2.4); Potassium, Blood 3.9 mmol/L (3.5-5.5)
[2022-08-25 11:30] VITALS: BP 111/72
== END 2022-08-25 12:11 | disposition home or self-care (01) ==
LOC: ER 08:24
PROVIDERS: Student in an Organized Health Care Education/Training Program
DX: R07.89 Other chest pain (principal); R00.2 Palpitations; I48.91 Unspecified atrial fibrillation; Z88.5 Allergy status to narcotic agent; Z88.8 Allergy status to other drugs, medicaments and biological substances; Z79.899 Other long term (current) drug therapy; Z79.82 Long term (current) use of aspirin; I10 Essential (primary) hypertension; I25.2 Old myocardial infarction; E11.9 Type 2 diabetes mellitus without complications
CPT/HCPCS: 36415; 71046; 80048; 83735; 83880; 84484; 85025; 93005; 93010; 99285-25